=== PATIENT | male | born 1995 | race Caucasian/White ===

== ENCOUNTER 2022-03-25 17:05 | Emergency (ER) | payer OTHER ==
[2022-03-25 18:22] LABS: BASOPHIL 0.2 % (0-2); EOSINOPHIL 0 % (0-5); HCT 30.4 % (42.0-52.0); HGB 9.3 g/dl (13.2-18.0); LYMPHOCYTE 12.4 % (15-48); MCHC 30.6 g/dL (32.0-36.0); MCV 81.7 fL (78.0-100.0); MONOCYTE 5.1 % (0-12); MPV 8.3 fL (6.0-9.5); NEUTROPHIL 81.2 % (41-80); NRBC 0; PLT 754 K/uL (150-400); RBC 3.72 M/uL (4.70-6.00); RDW 14.6 % (11.5-14.0)
[2022-03-25 18:39] LABS: ALBUMIN 2.7 g/dL (3.4-5.0); BILIRUBIN - TOTAL 0.1 mg/dL (0.2-1.0); BUN/CREAT RATIO (CALC) 11.5 RATIO; C-REACTIVE PROTEIN 0.2 mg/dL (<=0.90); CREATININE 0.96 mg/dL (0.67-1.17); GLOBULIN (CALCULATION) 5.2 g/dL; POTASSIUM 3.2 mmol/L (3.5-5.1); TOTAL PROTEIN 7.9 g/dL (6.4-8.2)
[2022-03-25 18:42] LABS: LACTIC ACID 1.6 mmol/L (0.4-1.9)
[2022-03-25 20:55] LABS: BILIRUBIN NEGATIVE (NEGATIVE); BLOOD NEGATIVE Ery/uL (NEGATIVE); CLARITY CLEAR (CLEAR); COLOR YELLOW (YELLOW); GLUCOSE (U) NORMAL (NORMAL); LEUKOCYTES NEGATIVE Leu/uL (NEGATIVE); NITRITE NEGATIVE (NEGATIVE); PROTEIN NEGATIVE (NEGATIVE); UROBILINOGEN 0.2 mg/dL (0.2-1.0); pH 6.5 (5.0-9.0)
[2022-03-26] MEDS ORDERED: PREDNISONE 20MG20 MG PO (01:59)
[2022-03-26] MEDS ORDERED: BENTYL10 MG PO (01:59)
[2022-03-26] MEDS ORDERED: METRONIDAZOLE500 MG PO (01:59)
== END 2022-03-26 02:26 | disposition home or self-care (01) ==
LOC: FER 17:05
PROVIDERS: Emergency Medicine
DX: K50.10 Crohn's disease of large intestine without complications (principal); Z20.822 Contact with and (suspected) exposure to COVID-19
CPT/HCPCS: 36415; 80053; 81003; 83605; 83690; 84145; 85025; 86140; 87040; 93005; J2930; J7030; J7512; U0002